=== PATIENT | male | born 1970 | race Caucasian/White ===

== ENCOUNTER 2017-11-13 20:25 | Emergency (ER) | payer SELFPAY ==
[~2017-11-13 20:25] MED LIST: CLEOCIN HCL300 MG PO; KEFLEX500 MG PO; SMZ/TMP DS TAB 800; TRAMADOL50 MG PO
--- NOTE | 2017-11-13 21:04 | ED AMS/SEIZURE/WEAK/DIZZY ---
History of Present Illness General Chief Complaint: Lower Extremity Problems Stated Complaint: INFECTION ON MY L FOOT.ANTIBIOTICS NOT WORKING" Source: patient Exam Limitations: no limitations Vital Signs & Intake/Output Vital Signs & Intake/Output Vital Signs Date Time Temp Pulse Resp B/P B/P Pulse O2 O2 Flow FiO2 Mean Ox Delivery Rate 11/13 2301 98.0 64 18 124/89 97 Room Air Room Air 11/138 67 18 134/94 98 Room Air Room Air 11/136 70/36 11/13 2057 98.1 43 18 77/51 95 Room Air ED Intake and Output 11/14 0000 11/13 1200 Intake Total 1000 Output Total Balance 1000 Intake, IV 1000 Allergies Coded Allergies: NO KNOWN ALLERGIES (UNKNOWN 11/13/17) Reconcile Medications Mupirocin Calcium (Bactroban) 2 % CREAM..G. 1 MARYLIN TOP TID left foot infection apply to affected area(s) x 7 days [SMZ/TMP DS TAB 800] (Reported) Triage Nurses Notes Reviewed? yes Onset: Gradual Duration: day(s): Timing: recent history Injury Environment: home Severity: mild, moderate Modifying Factors: Improves With: rest. Associated Symptoms: "I fainted in the waiting room" HPI: 47 yo gentleman presents with 2 issues. First, "I am here to get my foot checked out... I've been taking amoxicillin for 5 days.... I stopped 2 days ago because it was upsetting my stomach.... but it hasn't gotten any better." He notes that there is no streaking, swelling, increased tenderness. "It's just not getting better." He does not wish pills. "I just want to put on a cream to make it better." Second, while sitting in the waiting room, "I felt suddenly warm all over ... and saw purple... I got really dizzy when I stood up...." He notes that he had 2 beers today and had not eaten or drunk much fluids today. "I was running around." Triage noted sbp 70's. He was rushed to Room 11. He is presently feeling well. He had no chest pain, shortness of breath, abdominal pain, nausea, vomiting. Past History Travel History Traveled to [place] past 21 day No Medical History Any Pertinent Medical History? see below for history Surgical History Surgical History: none Psychosocial History What is your primary language Portuguese Family History Hx Contributory? No Review of Systems Review of Systems Constitutional: Reports: no symptoms. EENTM: Reports: no symptoms. Respiratory: Reports: no symptoms. Cardiovascular: Reports: no symptoms. GI: Reports: no symptoms. Genitourinary: Reports: no symptoms. Musculoskeletal: Reports: no symptoms. Skin: Reports: no symptoms. Neurological/Psychological: Reports: no symptoms. Hematologic/Endocrine: Reports: no symptoms. Immunologic/Allergic: Reports: no symptoms. All Other Systems: Reviewed and Negative Physical Exam Physical Exam General Appearance: well developed/nourished, mild distress Head: atraumatic, normal appearance Eyes: Bilateral: normal appearance. Ears, Nose, Throat: normal pharynx, normal ENT inspection Neck: normal inspection, supple, full range of motion Respiratory: normal breath sounds, chest non-tender, no respiratory distress, quiet respiration, lungs clear Cardiovascular: regular rate/rhythm Gastrointestinal: normal bowel sounds, soft, non-tender, no organomegaly Back: normal inspection, normal range of motion, vertebral tenderness Extremities: normal range of motion, left foot on dorsum with 2cm circular area of mild infection. no lymphangitic streaking, no joint swelling. no discharge/ sign of abscess. Neurologic/Psych: no motor/sensory deficits, awake, alert, oriented x 3 Skin: intact, normal color, warm/dry Core Measures ACS in differential dx? No CVA/TIA Diagnosis No Sepsis Present: No Sepsis Focused Exam Completed? No Progress Differential Diagnosis: cellulitis vs vasovagal vs other. Plan of Care: Orders Procedure Date/time Status Add-on Test (ER Only) 11/13 2242 Active ETHANOL 11/13 2109 Complete TROPONIN LEVEL 11/14 2103 Complete LIPASE 11/14 2103 Complete HEPATIC FUNCTION PANEL 11/14 2103 Complete D-DIMER 11/14 2103 Complete CBC WITHOUT DIFFERENTIAL 11/14 2103 Complete BASIC METABOLIC PANEL 11/14 2103 Complete AMYLASE 11/14 2103 Complete EKG 11/14 2103 Active Laboratory Tests 11/13/172109: Anion Gap 16, Estimated GFR > 60, BUN/Creatinine Ratio 13.3, Glucose 76, Calcium 10.3 H, Total Bilirubin 0.9, Direct Bilirubin 0.5 H, AST 33, ALT 43, Alkaline Phosphatase 78, Troponin I < 0.01, Total Protein 8.3 H, Albumin 4.8, Amylase 99 , Lipase 256, D-Dimer High Sensitivty < 200, CBC w Diff NO MAN DIFF REQ, RBC 5.47, MCV 88.2, MCH 30.7, MCHC 34.9, RDW 12.5, MPV 6.7 L, Gran % 53.0, Lymphocytes % 36.7, Monocytes % 6.3, Eosinophils % 3.6, Basophils % 0.4, Absolute Granulocytes 5.6, Absolute Lymphocytes 3.9 H, Absolute Monocytes 0.7 H, Absolute Eosinophils 0.4, Absolute Basophils 0, Serum Alcohol 42.0 11/13/172105: Serum Alcohol Cancelled Diagnostic Imaging: Viewed by Me: Radiology Read. Discussed w/RAD: Radiology Read. CXR Impression: PATIENT: RENETTA APONTE PRESENT AGE: 47 PATIENT ACCOUNT NO: [id number] : 70 LOCATION: [facility] ORDERING PHYSICIAN: Adebayo Alvarenga MD SERVICE DATE: 11/13/17 EXAM TYPE: RAD - XRY-PORTABLE CHEST XRAY EXAMINATION: XR PORTABLE CHEST CLINICAL INFORMATION: Chest pain. COMPARISON: Chest radiograph 10/21/2008. TECHNIQUE: Portable frontal view of the chest was obtained. FINDINGS: No significant abnormality is noted involving the heart, lungs, mediastinum, bony thorax or soft tissues. IMPRESSION: Unremarkable examination. DICTATED BY: Luke Rodriguez MD DATE/TIME DICTATED:11/13/172156 TELEPHONE LINEWORKER:SOFIA DATE/TIME TRANSCRIBED:11/13/172156 CONFIDENTIAL, DO NOT COPY WITHOUT APPROPRIATE AUTHORIZATION. <Electronically signed in Other Vendor System> SIGNED BY: Luke Rodriguez MD 11/13/172200 Initial ED EKG: NSR W/ PVC, OTHERWISE NO ACUTE CHANGES Departure Departure Disposition: HOME OR SELF CARE Condition: Stable Clinical Impression Primary Impression: Vasovagal episode Secondary Impressions: Cellulitis Referrals: Patient Has No Primary Care Dr (PCP/Family) Departure Forms: Customer Survey General Discharge Information Prescriptions: Current Visit Scripts Mupirocin Calcium (Bactroban) 1 MARYLIN TOP TID #30 GM apply to affected area(s) x 7 days Comments discussed at great length with patient.... he likely had vasovagal episode in the ED waiting room. I counseled him that it would be safest if he stayed for further observation, a second troponin/ekg. He states, "I feel fine... I'm pretty sure it was dehydration... I don't want to stay... I want to go home.... I feel fine." I counseled him that he should stay, counseling that further monitoring would be safest, that he is at risk for further issues. He declines. He is clear and articulate in his reasoning, awake and alert, lucid.
[2017-11-13 21:19] LABS: ABSOLUTE BASOPHIL COUNT 0 /CUMM (0.0-0.2); ABSOLUTE EOSINOPHIL COUNT 0.4 /CUMM (0.0-0.7); ABSOLUTE GRANULOCYTE CT 5.6 /CUMM (1.4-6.5); ABSOLUTE LYMPH COUNT 3.9 /CUMM (1.2-3.4); ABSOLUTE MONOCYTE COUNT 0.7 /CUMM (0.10-0.60); BASOPHIL % 0.4 % (0.0-2.0); EOSINOPHIL % 3.6 % (0-5); HEMATOCRIT 48.2 % (42-52); MEAN CORPUSCULAR HGB 30.7 PG (27.0-31.0); MEAN CORPUSCULAR HGB CONC 34.9 G/DL (33.0-37.0); MEAN CORPUSCULAR VOLUME 88.2 FL (80.0-94.0); MEAN PLATELET VOLUME 6.7 FL (7.4-10.4); PLATELET COUNT 237 /CUMM (130-400); RBC DISTRIBUTION WIDTH 12.5 % (11.5-14.5); RED BLOOD CELL CT 5.47 /CUMM (4.70-6.10); WHITE BLOOD CELL COUNT 10.5 /CUMM (4.8-10.8)
[2017-11-13] MEDS ORDERED: BACTROBAN15 GM TOP (21:32)
--- NOTE | 2017-11-13 22:01 | RADIOLOGY REPORT ---
EXAMINATION: XR PORTABLE CHEST CLINICAL INFORMATION: Chest pain. COMPARISON: Chest radiograph 10/21/2008. TECHNIQUE: Portable frontal view of the chest was obtained. FINDINGS: No significant abnormality is noted involving the heart, lungs, mediastinum, bony thorax or soft tissues. IMPRESSION: Unremarkable examination.
[2017-11-13 23:02] VITALS: BP 124/89
== END 2017-11-13 23:56 ==
LOC: ERH 20:25
PROVIDERS: Pediatrics
DX: R55 Syncope and collapse (principal); L03.119 Cellulitis of unspecified part of limb
CPT/HCPCS: 71045; 93005; 93010; 96360; 96361; G0480